=== PATIENT | female | born 1995 | race Caucasian/White ===

== ENCOUNTER 2017-07-22 12:48 | Emergency (ER) | payer OTHER, SELFPAY ==
[2017-07-22 12:49] VITALS: BP 142/84; PULSE 122; RESP 16; TEMP 37.1; O2SAT 99; BMI 25.5
--- NOTE | 2017-07-22 13:17 | ED.VISSUMM ---
- ER Visit Summary Date of Service: 07/22/17 Chief Complaint: Rash History of Present Illness: The patient is a [address] Tovar. He reports that 2 days ago she began with a rash on her right forearm. States initially it looked like a mosquito bite. However, she reports that today the area is more swollen and painful. She reports she has pain 6 out of 10 with touching it and 3 out of 10 at rest. She is not taking anything for pain. Physical Examination: Vitals: Stable. Afebrile. General: Well-nourished and well-developed. Head: Normocephalic atraumatic. Neck: Supple, no lymphadenopathy. No JVD. Nontender. Cardiovascular: Regular rate and rhythm. No murmurs. Respiratory: No respiratory distress. Clear to auscultation bilaterally. Abdominal: Soft, nontender, nondistended, normal bowel sounds. No guarding, rebound, or peritoneal signs. Back: Nontender. Extremities: Nontender, no edema. Skin: On the medial/posterior surface of her right mid forearm there is an approximately 7 cm raised erythematous lesion. There is an approximately 3 mm central macular lesion within this. There is no induration or fluctuance. Neurologic: Alert and oriented ?3. Cranial nerves II through XII are intact. Normal strength and sensation. Psych: Normal affect. Emergency Department Course and Treatment: Had a prolonged discussion with patient that this looks like a localized allergic reaction. However, I cannot rule out cellulitis. She was treated with Benadryl and clindamycin. Instructed her that if the erythema improved greatly with within a few hours that is from the Benadryl and this is allergic in etiology. Treatment Plan: Patient will be discharged with Zyrtec and clindamycin. Instructed to follow-up with her primary care physician in 2 days for a wound check. Return to the emergency department for any worsening symptoms. Disposition: To home in improved and stable condition. Impression: 1. Localized allergic reaction left forearm. This note was generated with [employer] dictation software. It may contain incorrect words, spelling, and punctuation that were not noted in review of the chart prior to signing ED Disposition - Plan for ED Patient: Disposition: Home or Assisted Living Chief Complaint: Cellulitis Instructions: ED Bite Sting Insect Local Allergic React Prescriptions: Ondansetron [Zofran Odt] 4 mg PO Q8H PRN PRN #10 tablet PRN Reason: Nausea Cetirizine HCl [Zyrtec] 10 mg PO DAILY #14 tablet Clindamycin [Cleocin] 150 mg PO TID #21 capsule Mupirocin Calcium [Bactroban] 30 gm TP 4X/DAY #1 tube Referrals: Godwin Hensley [Primary Care Provider] - 2 Days for wound check
[2017-07-22] MEDS: DiphenhydrAMINE 25 MG Capsule 50 MG PO (13:43)
[2017-07-22] MEDS: Ondansetron ODT 4 MG Tablet PO (13:43)
[2017-07-22] MEDS: Clindamycin HCl 150 MG Capsule PO (13:43)
[2017-07-22 13:46] VITALS: BP 129/89; PULSE 100; RESP 14; O2SAT 98
== END 2017-07-22 13:47 | disposition home or self-care (01) ==
LOC: ED 13:24
PROVIDERS: Emergency Provider Emergency Medicine; Family Provider Family Medicine; PCP Family Medicine
DX: T78.40XA Allergy, unspecified, initial encounter (principal); Z72.0 Tobacco use; X58.XXXA Exposure to other specified factors, initial encounter
CPT/HCPCS: 99284

== ENCOUNTER 2021-12-29 17:12 | Inpatient (IN) | payer MEDICAID, OTHER, SELFPAY ==
[2021-12-29] VITALS (12 sets, daily range): BP systolic 106–139; BP diastolic 45–74; PULSE 116–132; RESP 16–26; TEMP 36.8–39.4; O2SAT 96–100; BMI 35.2; BMI 35.7
--- NOTE | 2021-12-29 17:50 | EKG12_ITS ---
Test Reason : GENERAL ILLNESS Blood Pressure : / mmHG Vent. Rate : 118 BPM Atrial Rate : 118 BPM P-R Int : 134 ms QRS Dur : 106 ms QT Int : 324 ms P-R-T Axes : 039 080 038 degrees QTc Int : 454 ms Sinus tachycardia Otherwise normal ECG Confirmed by ROSA DISLA, MANISHA ([id number]), brands editor MARY TYLER ([id number]) on 01/04/2022 9:32:08 A M Referred By: Confirmed By:MARK LEE MD
--- NOTE | 2021-12-29 17:53 | EDS_ITS ---
HPI History of Present Illness Chief Complaint: General Illness Detail of Chief Complaint: Fever. Informant: patient and family Onset/Context/Timing Onset: Days Context: Gradual Onset Timing: Continuous Current Severity: Moderate Maximum Severity: Moderate Narrative Narrative: 26-year-old female history of IV drug abuse. Had been sober and just recently relapsed. Several days ago injected methamphetamine into her left lower leg and behind her knee. The last several days has been feeling well today developed a fever. She is also on her menstrual cycle. Went to [facility] in hospital she did not tell them the whole truth and willingly admits that to me they worked her up for possible pelvic infection discharged home. She presents here now with a fever and not feeling well. Denies any abdominal pain. No recent hospitalization. Prior similar symptoms: No Recent Illness/Hospitalization: No PFSH PFS Medical History Methamphetamine abuse Home Medications NK 12/29/21 [History Last Taken Unknown] Allergy/AdvReac Type Severity Reaction Status Date / Time No Known Allergies Allergy Verified 12/29/21 17:16 Social History Smoking Status: Current every day smoker tobacco type: e-cigarettes ROS ROS ED ROS Narrative Fever and chills. Review of Systems ROS Unobtainable: Denies due to encephalopathy Constitutional Constitutional ED: Reports chills and fever(s) Eyes Eyes: Denies blurry vision ENT ENT ED: Denies ear pain Cardiovascular Cardiovascular: Denies chest pain Respiratory/Chest Respiratory/Chest: Denies cough or dyspnea Gastrointestinal Gastrointestinal: Denies abdominal pain Genitourinary Genitourinary ED: Denies dysuria or hematuria Musculoskeletal Musculoskeletal: Denies arthralgias Integumentary Denies abscess or Abrasions Neurologic Neurologic: Denies headache(s) Psychiatric Psychiatric: Denies anxiety Endocrine Endocrinology: Denies cold intolerance Hematologic/Lymphatic Hematologic/Lymphatic: Reports none Allergic/Immunologic Allergic/Immunologic ED: Denies mouth swelling or tongue swelling EXAM Physical Exam Narrative Exam Narrative: 30-year-old female vital signs she is tachycardic at 132 with a temperature 100.1. Blood pressure 106/59. She looks like she does not feel well. Possibly septic. Pulse ox under percent on room air no signs hypoxia H EENT exam unremarkable. Neck nontender no lymphadenopathy. Lungs clear to auscultation. Heart tachycardic rate about 130 no murmur. Abdomen soft nontender normal bowel sounds no peritoneal signs. Moving all 4 extremities. Extremities she has track chan on her left lower extremity posteriorly and has an area of cellulitis in the proximal medial left calf. It is approximately 5 inches in length and 4 to 6 inches in width. No lymphangitic streaking. No inguinal lymp hadenopathy. Neurologically she is awake and alert. Answering questions and following commands. Const Vital Signs: 12/29/21 17:14 12/29/21 17:37 12/29/21 17:44 Temperature 100.1 F H 100.1 F H Temperature Source Oral Oral Pulse Rate 132 H 123 H Respiratory Rate 18 20 H Respiratory Effort Normal Non-Labored Respiratory Pattern Normal Blood Pressure 106/59 L 122/69 H Blood Pressure Mean 74 86 Pulse Ox 100 100 Oxygen Delivery Method Room Air Room Air 12/29/21 17:52 12/29/21 18:26 12/29/21 19:12 Temperature 102.2 F H 99.1 F Temperature Source Oral Temporal Pulse Rate 120 H 116 H Respiratory Rate 16 16 Respiratory Effort Respiratory Pattern Blood Pressure 122/69 H 139/74 H Blood Pressure Mean 86 95 Pulse Ox 98 100 100 Oxygen Delivery Method Room Air Room Air Room Air 12/29/21 19:14 Temperature 99.1 F Temperature Source Temporal Pulse Rate 116 H Respiratory Rate 16 Respiratory Effort Respiratory Pattern Blood Pressure 139/74 H Blood Pressure Mean 95 Pulse Ox 100 Oxygen Delivery Method Room Air Positive well nourished, well developed and obese; Negative for cachectic, contractures or unkempt General Appearance ED: well developed; Negative for unkempt, cachectic, contractures, cyanotic, diaphoretic, NAD or pallor Nutritional Appearance: obese; Negative for cachectic HEENT Reports moist mucous membranes Negative for trauma or tenderness Eyes PERRL and EOMs intact bilaterally General Eye ED: Negative for pale conjunctiva or scleral icterus Neck no lymphadenopathy, supple and no JVD General: Negative for tenderness Lymph Lymphatic: Negative for other Chest Wall inspection of chest normal and palpation of chest normal Chest: Negative for other Resp normal respiratory effort and clear to auscultation bilaterally Effort and Inspection: Negative for retractions Auscultation: Negative for rales, rhonchi, wheezes or diminished lung sounds Cardio regular rhythm, S1 normal heart sound, S2 normal heart sound and no murmurs; Negative for regular rate Rate: tachycardic Rhythm: Negative for abnormal rhythm GI normal to inspection, nondistended, normoactive bowel sounds, non-tender, non- distended and no masses Inspection: Negative for abdominal distention Auscultation: normoactive bowel sounds Palpation: soft; Negative for tender, guarding, splenomegaly, mass or rebound tenderness present Back/Spine no CVA tenderness General Back: Negative for CVA tenderness Cervical Spine: Negative for cervical spine tenderness Thoracic Spine / Upper Back: Negative for thoracic spinal tenderness or paraspinal muscle tenderness Lumbar Spine / Lower Back: Negative for lumbar spinal tenderness Extremity normal to inspection Extremity Narrative: Except left lower leg track chan. Left proximal medial calf she has cellulitis that is warm to touch and tender. No lymphangitic streaking or inguinal lymphadenopathy. General Extremety ED: Yes edema and tenderness General Extremity: edema Neuro oriented x3, CN's II-XII intact bilaterally and no sensory deficits noted Sensorium / Orientation: alert; Negative for orientation impaired, lethargic or stuporous Motor Exam: strength 5/5 throughout Psych mental status grossly normal Appearance: Negative for unkempt Attitude: No agitated Mood & Affect: Negative for depressed, anxious or tearful Skin No no rashes or lesions noted and no wounds General Skin Exam: Negative for jaundice or pallor Rashes: rashes noted MDM MDM MDM Narrative Medical decision making narrative: 26-year-old with history of IV drug abuse. Several day history of not feeling well appears to have a left lower extremity cellulitis from where she shoots up. Placed through a septic work-up. Liter normal saline. Tylenol. Started on IV Zosyn and vancomycin. Repeat exam at 7:30 PM patient is improving. She has been given a liter of IV fluids. Tylenol and to IV antibiotics. Clinically she looks a little improved. Blood pressure 139/74. Heart rate 116. Temperature 99.1. I went over all test results with the patient and her . Hospitalist is down evaluating her for admission. On repeat exam she does have a cellulitis on her right jiang also. Lab Data Attestation: I reviewed the patient's lab results. Lab results narrative: CBC shows elevated white count 18. H&H 10.8 and 34. Platelets 199. PT, INR PTT unremarkable. Electrolytes show sodium 133 gap of a normal BUN of 10 creatinine of 1. Glucose 139. Liver enzymes unremarkable. Lactic acid 1.6. UA negative except for red cells and she is on her period. Labs: Laboratory Results - last 24 hr 12/29/21 12/29/21 12/29/21 17:45 17:45 17:45 WBC 18.0 H RBC 4.31 Hgb 10.8 L Hct 34.0 L MCV 78.9 L MCH 25.1 L MCHC 31.8 L RDW Std Deviation 40.7 RDW Coeff of Mikki 14.0 Plt Count 199 MPV 11.1 Immature Gran % (Auto) 0.700 Neut % (Auto) 91.3 H Lymph % (Auto) 4.2 L [place] % (Auto) 3.6 Eos % (Auto) 0.0 Baso % (Auto) 0.2 Absolute Neuts (auto) 16.5 H Absolute Lymphs (auto) 0.75 L Nucleated RBC % 0 PT 14.4 INR 1.2 APTT 34.4 Sodium 133 L Potassium 3.4 L Chloride 100 Carbon Dioxide 25.0 Anion Gap 8 BUN 10 Creatinine 1.01 Estim Creat Clear Calc 82.80 Est GFR (MDRD) Af Amer 86 Est GFR (MDRD) Non-Af 71 BUN/Creatinine Ratio 9.9 L Glucose 139 H Lactic Acid Calcium 8.1 L Total Bilirubin 0.50 AST 14 L ALT 23 Alkaline Phosphatase 46 Total Protein 7.0 Albumin 3.1 L Globulin 3.9 Albumin/Globulin Ratio 0.8 L Urine Color Urine Clarity Urine pH Ur Specific [place] Urine Protein Urine Glucose (UA) Urine Ketones Urine Occult Blood Urine Nitrite Urine Bilirubin Urine Urobilinogen Ur Leukocyte Esterase Urine RBC Urine WBC Ur Squamous Epith Cells Urine Bacteria Urine Mucus 12/29/21 12/29/21 17:45 18:07 WBC RBC Hgb Hct MCV MCH MCHC RDW Std Deviation RDW Coeff of Mikki Plt Count MPV Immature Gran % (Auto) Neut % (Auto) Lymph % (Auto) [place] % (Auto) Eos % (Auto) Baso % (Auto) Absolute Neuts (auto) Absolute Lymphs (auto) Nucleated RBC % PT INR APTT Sodium Potassium Chloride Carbon Dioxide Anion Gap BUN Creatinine Estim Creat Clear Calc Est GFR (MDRD) Af Amer Est GFR (MDRD) Non-Af BUN/Creatinine Ratio Glucose Lactic Acid 1.6 Calcium Total Bilirubin AST ALT Alkaline Phosphatase Total Protein Albumin Globulin Albumin/Globulin Ratio Urine Color Yellow Urine Clarity Clear Urine pH 7.0 Ur Specific [place] 1.010 Urine Protein Negative Urine Glucose (UA) Normal Urine Ketones Negative Urine Occult Blood 250 H Urine Nitrite Negative Urine Bilirubin Negative Urine Urobilinogen Normal Ur Leukocyte Esterase Negative Urine RBC 10-25 SEEN Urine WBC 0 SEEN Ur Squamous Epith Cells 0 SEEN Urine Bacteria RARE Urine Mucus 0 SEEN Radiography Chest X-Ray - ED: 1 View, Read by ED Physician, Read by Radiologist, Heart, Lungs, Mediastinum, Bony Structures and No Acute Disease Diagnostic Testing: Clinical Impression(s) from Imaging Studies Chest X-Ray 12/29/21 18:28 IMPRESSION: 1. No evidence of acute cardiopulmonary process Electronically Signed: Tony Peck MD at 19:14 EST , Chest x-ray, portable, single view shows no acute abnormality. Normal cardiac silhouette. No infiltrates. Interpreted both by myself and radiologist. Rhythm Strip Rhythm Strip: Sinus Tach Rate: 118 Ectopy: None EKG Initial EKG: Attestation: I personally reviewed and interpreted this EKG as follows: Interpretation: No Acute Injury Pattern and Sinus Tachycardia Comments: Sinus tach cardia rate of 118 no acute signs of IL, ischemia or dysrhythmia. Discharge Plan Triage Chief Complaint: General Illness Other Complaint: Abscess ED Provider: Fercho Valdivia Dx/Rx/DC Orders Clinical Impression: Fever, Leukocytosis, Cellulitis, SIRS (systemic inflammatory response syndrome), History of intravenous drug abuse Prescriptions: No Action NK Primary Care Provider: Kesha Duncan NP Referrals: Godwin Hensley MD [Non-Staff] - Disposition Disposition: Acute Care [facility]
[2021-12-29] MEDS: 0.9% Normal Saline 1,000 ML 999 ML IV ×2 (17:56→22:00)
[2021-12-29 18:01] LABS: Absolute Lymphocyte Count 0.75 X10^3/uL (0.83-4.51); Absolute Neutrophil Count 16.5 X10^3/uL (2.0-7.7); Basophil# 0.04 X10^3/uL; Basophil% 0.2 % (0-1); Hemoglobin 10.8 g/dL (12.0-15.0); Lymphocyte # 0.75 X10^3/ul (0.83-4.51); Lymphocyte % 4.2 % (19-41); Mean Corp Hgb Conc 31.8 g/dL (32-36); Mean Corpuscular Hgb 25.1 pg (27.0-32.0); Mean Corpuscular Volume 78.9 fL (81-99); Mean Platelet Vol. 11.1 fl (6.2-12.0); Monocyte# 0.64 X10^3/uL; Monocyte% 3.6 % (0-10); NRBC Flagged by Analyzer 0 % (0-5); Neutrophil # 16.47 X10^3/uL (2.7-7.7); Neutrophil % 91.3 % (47-70); Platelet Count 199 K/mm3 (150-450); RBC Distribution Width SD 40.7 fl (35.1-43.9); Red Blood Count 4.31 M/mm3 (4.2-5.4)
--- NOTE | 2021-12-29 18:02 | NURSING ---
NO OLD EKGS
[2021-12-29] MEDS: Acetaminophen 500 MG Tablet 1000 MG PO (18:20)
[2021-12-29 18:21] LABS: ALB/GLOB Ratio 0.8 RATIO (0.9-2.4); AST(SGOT) 14 U/L (15-37); Alanine Aminotransfer ALT/SGPT 23 U/L (13-56); Albumin, Serum 3.1 g/dL (3.2-5.0); Alkaline Phosphatase 46 U/L (45-117); Anion Gap 8 (5-15); BUN 10 mg/dL (7-18); BUN/Creat Ratio 9.9 RATIO (10-20); Calcium,Total 8.1 mg/dL (8.5-10.1); Chloride 100 mmol/L (98-107); Creatinine, Serum 1.01 mg/dL (0.55-1.02); EST Glomerular Filtration Rate 71 mL/min (>60); Est Glom Filt Rate - Afr Amer 86 mL/min (>60); Globulin 3.9 g/dL (2.2-4.2); Glucose 139 mg/dL (74-106); International Normalized Ratio 1.2; Partial Thromboplast Time 34.4 Seconds (24.1-36.2); Potassium 3.4 mmol/L (3.5-5.1); Prothrombin Time (Protime)PT. 14.4 SECONDS (11.7-14.9); Sodium Level 133 mmol/L (136-145)
[2021-12-29 18:24] LABS: Lactic Acid 1.6 mmol/L (0.4-1.9)
--- NOTE | 2021-12-29 18:28 | RAD_ITS ---
INDICATION: fever EXAMINATION/TECHNIQUE: X-RAY - XR Chest 1 View COMPARISON: No previous relevant examinations available for comparison.. FINDINGS: LIFE-SUPPORT AND LINES: 1. None HEART AND VESSELS: The cardiac silhouette, pulmonary vasculature have normal appearance. No evidence of congestive failure. LUNGS AND PLEURAL SPACES: Lungs are clear. No focal infiltrate, consolidation or effusions. No evidence of pneumothorax. No pulmonary mass is noted. MEDIASTINUM AND HILAR REGIONS: No masses adenopathy noted. No areas of calcification. Visualized upper airway is normal in position. BONY ELEMENTS: No acute bony changes noted. RAD/Chest 1 View (Portable) IMPRESSION: 1. No evidence of acute cardiopulmonary process Electronically Signed: Tony Peck MD at 19:14 EST ,
[2021-12-29 18:30] LABS: Mucous, Urine 0 SEEN /hpf (<or=2+); Squamous Epithelial Cells - UA 0 SEEN /hpf (5-10); White Blood Cells 0 SEEN /hpf (0-5)
[2021-12-29 18:36] LABS: Color, Urine Yellow (Yellow); Glucose, Dipstick Normal (Normal); Ketone-Dipstick Negative (Negative); Leukocyte Esterase-Dipstick Negative /ul (Negative); Nitrite-Dipstick Negative (Negative); Occult Blood-Urine 250 /ul (Negative); Protein-Dipstick Negative (Negative); Urine Bilirubin Dipstick Negative (Negative); Urine Clarity Clear (Clear); Urine Urobilinogen Normal (Normal)
[2021-12-29 18:41] LABS: Red Blood Cells-Urine 10-25 SEEN /hpf (0-5)
[2021-12-29 18:42] LABS: Bacteria RARE /hpf (None Seen)
--- NOTE | 2021-12-29 19:13 | HP.PCM.HOS_ITS ---
HPI - General General Date of Admission: 12/29/21 Date of Service: 12/29/21 Chief Complaint: Fever, BL LE cellulitis, possible LLE abscess. HPI Narrative The patient is a 26 y/o F w/ PMHx: Anxiety and Depression, Chronic anemia, Obesity, Tobacco use, Polysubstance abuse w/ recent replace with IVDA w/ injection of the left lower leg behind her knee several days prior with over the last several days progressive fatigue, malaise and now onset of fever as well as left lower extremity redness, edema and pain prompting eventual ED evaluation. She does report that she had been at [facility] however she was not truthful about her drug usage or recent injection and was worked up at that time for possible pelvic infection and discharged home. She currently rates the pain as dull aching throbbing, worse with palpation, 3-4 of 10 in severity. Initially she presented because of the left lower extremity findings however upo n ED evaluation she did have onset on day of presentation of right anterior jiang erythema as well. She denies any recent specific drainage from the left calf wound. Her significant who is present is not a substance user and is supportive about her obtaining a clean status. Work-up in the ED included T102.2, heart rate 120, BP 122/69, respiratory rate 16, 100% on room air, blood culture x2 pending per ED, urine culture pending per ED, CBC with WC 18, hemoglobin 10.8, MCV 78.9, platelet 199 with left shift and lymphopenia, unremarkable coags, CMP with sodium 133, potassium 3.4, glucose 139, lactic acid 1.6 otherwise hepatic profile not marked appearing, urinalysis with no obvious evidence of UTI, chest x-ray with no acute cardiopulmonary findings. In the ED patient ministered vancomycin, Zosyn, Tylenol and normal saline 1 L bolus. PFSH Medical History Anemia Anxiety and depression IVDA (intravenous drug abuse) complicating Methamphetamine abuse Obesity Tobacco use Home Medications NK 12/29/21 [History Last Taken Unknown] Allergy/AdvReac Type Severity Reaction Status Date / Time No Known Allergies Allergy Verified 12/29/21 17:16 Family History (Updated 12/30/21 @ 01:[address] Alva Guo MD) Mother Cancer Alcohol abuse Father Alcohol abuse Surgical History (Updated 12/30/21 @ 01:[address] Alva Guo MD) H/O arthroscopic knee surgery Social History (Updated 12/30/21 @ 01:[address] Alva Guo MD) household members: significant other Smoking Status: Current every day smoker tobacco type: cigarettes and e- cigarettes how long ago did patient quit smoking: Quit cig tob x 2 yrs (1.5 ppd since teen)->jewel pot daily. alcohol intake: current alcohol intake frequency: holidays/special occasions only substance use type: amphetamines and IV drugs ROS ROS Narrative Admission Review of Systems: CONSTITUTIONAL: No weight loss, fever, chills, + weakness or fatigue. HEENT: Eyes: No visual loss, blurred vision, double vision or yellow sclerae. Ears, Nose, Throat: No hearing loss, sneezing, congestion, runny nose or sore throat. SKIN: + Lower extremity redness, pain. CARDIOVASCULAR: No chest pain, chest pressure or chest discomfort, palpitations, edema, orthopnea, syncopal events. RESPIRATORY: No shortness of breath, cough or sputum, wheezing, hemoptysis. GASTROINTESTINAL: No anorexia, nausea, vomiting or diarrhea, abdominal pain, melena, BRBPR. GENITOURINARY: No dysuria, frequency, urgency or retention. NEUROLOGICAL: No headache, dizziness, syncope, paralysis, ataxia, numbness or tingling in the extremities, focal weakness, change in bowel or bladder control, seizure. MUSCULOSKELETAL: + muscle, back pain, joint pain or stiffness. HEMATOLOGIC: + anemia, bleeding or bruising. LYMPHATICS: No enlarged nodes. No history of splenectomy. PSYCHIATRIC: + history of depression or anxiety. ENDOCRINOLOGIC: No reports of sweating, cold or heat intolerance. No polyuria or polydipsia. ALLERGIES: No history of asthma, hives, eczema or rhinitis. Vital Signs Vital Signs Vital Signs: 12/29/21 17:14 12/29/21 17:37 12/29/21 17:44 Temperature 100.1 F H 100.1 F H Temperature Source Oral Oral Pulse Rate 132 H 123 H Respiratory Rate 18 20 H Respiratory Effort Normal Non-Labored Respiratory Pattern Normal Blood Pressure 106/59 L 122/69 H Blood Pressure Mean 74 86 Pulse Ox 100 100 Oxygen Delivery Method Room Air Room Air 12/29/21 17:52 12/29/21 18:26 Temperature 102.2 F H Temperature Source Oral Pulse Rate 120 H Respiratory Rate 16 Respiratory Effort Respiratory Pattern Blood Pressure 122/69 H Blood Pressure Mean 86 Pulse Ox 98 100 Oxygen Delivery Method Room Air Room Air Weight Weight: 225 lb Body Mass Index (BMI) 35.2 Physical Exam Narrative Physical Examination: General: Awake, alert, oriented x 3 and cooperative, seated upright in the ED bed, fatigued, uncomfortable appearing. Skin: Normal color, normal turgor, no icterus, no cyanosis except for notable anterior jiang erythema with increased warmth, tender to palpation with no obvious abscess with just medial to this on the mid jiang healing wounds with no apparent drainage and no significant induration or evidence of any abscess, left lower extremity with posterior medial calf with a region of erythema as well as an area of induration with no specific drainage from a wound at that location as well, tender to palpation as well as significant facial and extremity exco riations/picked regions/acne scarring. HEENT: AT/NC, EOMI, PERRLA, dry MM, no carotid bruits or JVD noted. Lungs: Mildly diminished, greater bases, appropriate effort, no rales, ronchi or wheezing. Heart: Tachycardic with regular rhythm; no gallop, rub audible. Abdomen: Soft, obese, NTTP, ND, distant normal BS, no HSM. Extremities: No cyanosis, no clubbing, see skin. Neurological: Patient awake, alert, oriented as noted, cognitive function intact; pupils equally reactive to light and accommodation, cranial nerves II- XII grossly normal, moving all 4 extremities however limited given pain elici heber, no focal deficits, strength mildly to moderately globally decreased secondary to acute complaints. Psychiatric: Affect appears uncomfortable, fatigued, tearful about her relapse, history of anxiety and depression. Results Lab / Micro Data Result Diagrams: 12/29/21 17:45 12/29/21 17:45 Labs: Laboratory Results - last 24 hr 12/29/21 17:45: WBC 18.0 H, RBC 4.31, Hgb 10.8 L, Hct 34.0 L, MCV 78.9 L, MCH 25.1 L, MCHC 31.8 L, RDW Std Deviation 40.7, RDW Coeff of Mikki 14.0, Plt Count 199, MPV 11.1, Immature Gran % (Auto) 0.700, Neut % (Auto) 91.3 H, Lymph % (Auto) 4.2 L, [place] % (Auto) 3.6, Eos % (Auto) 0.0, Baso % (Auto) 0.2, Absolute Neuts (auto) 16.5 H, Absolute Lymphs (auto) 0.75 L, Nucleated RBC % 0 12/29/21 17:45: PT 14.4, INR 1.2, APTT 34.4 12/29/21 17:45: Sodium 133 L, Potassium 3.4 L, Chloride 100, Carbon Dioxide 25.0, Anion Gap 8, BUN 10, Creatinine 1.01, Estim Creat Clear Calc 82.80, Est GFR (MDRD) Af Amer 86, Est GFR (MDRD) Non-Af 71, BUN/Creatinine Ratio 9.9 L, Glucose 139 H, Calcium 8.1 L, Total Bilirubin 0.50, AST 14 L, ALT 23, Alkaline Phosphatase 46, Total Protein 7.0, Albumin 3.1 L, Globulin 3.9, Albumin/Globulin Ratio 0.8 L 12/29/21 17:45: Lactic Acid 1.6 12/29/21 18:07: Urine Color Yellow, Urine Clarity Clear, Urine pH 7.0, Ur Specific [place] 1.010, Urine Protein Negative, Urine Glucose (UA) Normal, Urine Ketones Negative, Urine Occult Blood 250 H, Urine Nitrite Negative, Urine Bilirubin Negative, Urine Urobilinogen Normal, Ur Leukocyte Esterase Negative, Urine RBC 10-25 SEEN, Urine WBC 0 SEEN, Ur Squamous Epith Cells 0 SEEN, Urine Bacteria RARE, Urine Mucus 0 SEEN Assessment & Plan Assessment/Plan (1) Cellulitis: PLAN: Plan The patient is a 26 y/o F w/ PMHx: Anxiety and Depression, Chronic anemia, Obesity, Tobacco use, Polysubstance abuse w/ recent replace with IVDA w/ injection of the left lower leg behind her knee several days prior with over the last several days progressive fatigue, malaise and now onset of fever as well as left lower extremity redness, edema and pain prompting eventual ED evaluation. #1. LLE Posteriomedial Calf Cellulitis, Possible abscess, R anterior jiang cellulitis, secondary to recent IVDA injection: Will admit to MS telemetry, maintain on IV vanc and zosyn, currently no obvious abscess but given indurated region will obtain imaging to be cautious, if any onset drainage will obtain Wound Cx, Wound MRSA PCR, if any noted abscess on imaging would involve Plastic surgery, will plan repeat CBC in AM, continue affected extremity elevation above heart when seated and in bed, monitor erythema outline with VS checks, ESR/CRP pending. #2. Hyponatremia, mild: Sodium upon presentation 133, suspect mild hypovolemic component, continue aggressive hydration, repeat CMP in AM. #3. Hypokalemia: Admission K+ 3.4, magnesium level requested, supplementation given, repeat level in AM. #4. Hyperglycemia, mild: Admission glucose 139, will obtain HgBA1c to be cautious. #5. Polysubstance Abuse, IVDA: Given history will consult case management for substance abuse for assistance and will request HIV as well as hepatitis panel. Urine drug screen also requested. Patient currently not candidate for hep C treatment currently as needs to be clean, sober x 6 months, documented attendanc e NA or AA meetings, counseling and ongoing negative drug screens. Case management consulted for substance abuse assistance. #6. Tobacco Abuse: Encouraged cessation, inpatient consultation per RT, NR if desired. #7. Microcytic anemia, unclear if new onset: Admission hemoglobin 10.8, MCV 78.9, will obtain iron panel, ferritin to be cautious given poor follow-up concerns #8. Tobacco Abuse: Encouraged cessation, inpatient consultation per RT, NR if desired. #9. Obesity: Weight loss and lifestyle changes encouraged. #10. Anxiety and depression: Patient is not on regimen, notes during prior treatment for substance abuse she had been started on medications but at discharge had difficulty with insurance and unfortunately has not been on this regimen since. Patient would benefit from counseling and resumption of medications, awaiting case management involvement. #11. DVT prophylaxis: SCDs, hold chemoprophylaxis for possible OR needs Charges/Coding Visit Charges Inpatient E&M: 81604 Init Hosp L3
[2021-12-29 20:02] LABS: Magnesium 1.3 mg/dL (1.6-2.6)
[2021-12-29 20:23] LABS: Erythrocyte Sedimentation Rate 33 mm/hr (0-30)
[2021-12-29 21:03] LABS: HIV - WCH Non-Reactive (Nonreactive)
--- NOTE | 2021-12-29 21:11 | CT_ITS ---
HISTORY: Left possible posteromedial calf region abscess Date: 12/29/2021 10:46 PM Technique: CT examination obtained with standard protocol including axial imaging with multiplanar reconstructions. No contrast administered. Location: LEFT calf Contrast: No contrast administered Radiation Dose (provided by facility) CTDIvol (15.35 ) mGy, DLP ( 722.19) mGy-cm Comparison: No previous for comparison FINDINGS: BONY ELEMENTS: 1. Normal alignment bony elements without evidence of fracture malalignment. No destructive bony process noted. JOINT SPACES: 1. Normal appearance of alignment of bony elements and joint spaces. No joint effusion DEEP MUSCULAR COMPARTMENTS: 1. Deep muscular compartments are well-maintained. 2. No abnormal fluid collections noted in the deep muscular fascial compartments of the distal thigh, knee, or proximal calf. NEURAL VASCULAR COMPARTMENTS: 1. Normal appearance of the neural vascular compartments SUBCUTANEOUS SOFT TISSUES. 1. Scattered areas of soft tissue stranding the subcutaneous soft tissues including the infrapatellar region, minimal soft tissue stranding noted posteriorly at the level of the gastrocnemius. No organized fluid collection or abscess noted. CT/Extremity Lower without Contra IMPRESSION: 1. Normal appearance of bony elements and joint spaces. 2. Subtle soft tissue stranding in the infrapatellar soft tissues anteriorly, and posteriorly along the posterior contour of the gastrocnemius. Findings consistent with mild cellulitis, no evidence however of organized fluid collection or abscess. 3. No deep muscular fascial fluid collections or abscess noted. Electronically Signed: Tony Peck MD at 2:01 EST ,
--- NOTE | 2021-12-29 21:27 | PCM.HOSP.N ---
Hospitalist Note Patient with onset facial swelling, tingling sensation of her tongue. Received zosyn prior and now currently has vanc hanging with onset of reaction. ED denied any onset while in the ED. Will stop vanc given reaction now while this has started, add famotidine, steroids and also benadryl with d/c once improving. Will need to monitor as certainly could have been from zosyn also but will continue this in the interim and watch for any further reaction.
[2021-12-29 21:40] LABS: Amphetamine Urine VISTA POSITIVE (<1000 ng/mL); Barbiturate Urine VISTA NEGATIVE (< 200 ng/mL); Benzodiazepine Urine VISTA NEGATIVE (< 200 ng/mL); Cocaine Urine VISTA NEGATIVE (< 300 ng/mL); Ecstacy Urine VISTA POSITIVE (< 500 ng/mL); Methadone Urine VISTA NEGATIVE (< 300 ng/mL); PCP Urine VISTA NEGATIVE (< 25 ng/mL); THC Urine VISTA NEGATIVE (< 50 ng/mL); Vista UDS pH Range 6
[2021-12-29 21:58] LABS: M R Staph aureus DNA By PCR Negative (Negative); Probe Check PASS; Specimen Processing Control PASS; Staph aureus DNA By PCR POSITIVE (Negative)
[2021-12-29] MEDS: 0.9% Normal Saline 1,000 ML 150 ML IV (22:01)
[2021-12-29] MEDS: Famotidine 200 MG/20 ML MDV 20 MG in 0.9% Normal Saline (Pres. free 8 ML 300 MG IV (22:02)
[2021-12-29] MEDS: DiphenhydrAMINE 50 MG/ML Syringe 25 MG IV (22:03)
[2021-12-29] MEDS: Acetaminophen 325 MG Tablet 650 MG PO (22:03)
[2021-12-29] MEDS: Potassium Chloride Oral Tablet 20 MEQ 40 MEQ PO (22:07)
[2021-12-30] VITALS (13 sets, daily range): BP systolic 108–128; BP diastolic 66–72; PULSE 77–121; RESP 16–18; TEMP 36.5–37.2; O2SAT 96–100
[2021-12-30 03:54] LABS: M R Staph aureus DNA By PCR Negative (Negative); Probe Check PASS; Specimen Processing Control PASS
[2021-12-30 04:30] LABS: Absolute Neutrophil Count 15.1 X10^3/uL (2.0-7.7); Basophil# 0.04 X10^3/uL; Basophil% 0.2 % (0-1); Hematocrit 33.6 % (37-47); Hemoglobin 11.1 g/dL (12.0-15.0); Lymphocyte % 4.3 % (19-41); Mean Corpuscular Hgb 26.4 pg (27.0-32.0); Mean Corpuscular Volume 79.8 fL (81-99); Mean Platelet Vol. 11.2 fl (6.2-12.0); Monocyte# 0.29 X10^3/uL; Monocyte% 1.8 % (0-10); NRBC Flagged by Analyzer 0 % (0-5); Neutrophil % 93.1 % (47-70); Platelet Count 206 K/mm3 (150-450); RBC Distribution Width CV 14.6 % (11.6-14.6); RBC Distribution Width SD 42.5 fl (35.1-43.9); Red Blood Count 4.21 M/mm3 (4.2-5.4); White Blood Count 16.2 K/mm3 (4.4-11.0)
[2021-12-30 04:52] LABS: ALB/GLOB Ratio 0.7 RATIO (0.9-2.4); AST(SGOT) 11 U/L (15-37); Alanine Aminotransfer ALT/SGPT 21 U/L (13-56); Albumin, Serum 2.7 g/dL (3.2-5.0); Alkaline Phosphatase 39 U/L (45-117); Anion Gap 4 (5-15); BUN 12 mg/dL (7-18); BUN/Creat Ratio 10.3 RATIO (10-20); Calcium,Total 7.9 mg/dL (8.5-10.1); Chloride 111 mmol/L (98-107); Creatinine, Serum 1.16 mg/dL (0.55-1.02); EST Glomerular Filtration Rate 60 mL/min (>60); Est Glom Filt Rate - Afr Amer 73 mL/min (>60); Globulin 3.7 g/dL (2.2-4.2); Glucose 143 mg/dL (74-106); Magnesium 1.7 mg/dL (1.6-2.6); Potassium 4.3 mmol/L (3.5-5.1); Protein, Total 6.4 g/dL (6.4-8.2); Sodium Level 139 mmol/L (136-145)
[2021-12-30] MEDS: DiphenhydrAMINE 50 MG/ML Syringe 25 MG IV (05:13)
[2021-12-30 06:51] LABS: Ferritin 42 ng/mL (8-252); Iron 10 ug/dL (50-170); Iron Binding Capacity,Total 403 ug/dL (250-450); PERCENT IRON SATURATION 2.5 % (15.0-55.0)
[2021-12-30] MEDS: 0.9% Normal Saline 1,000 ML 150 ML IV ×3 (07:53→22:11)
[2021-12-30 09:28] LABS: Hepatitis B Surface Antibody Non-Reactive; Hepatitis B Surface Antigen Non-Reactive (Nonreactive); Hepatitis C Antibody Non-Reactive (Nonreactive)
[2021-12-30 09:34] LABS: Hemoglobin A1c 5.4 % (3.8-5.6)
[2021-12-30] MEDS: Famotidine 200 MG/20 ML MDV 20 MG in 0.9% Normal Saline (Pres. free 8 ML 300 MG IV (10:29)
--- NOTE | 2021-12-30 10:45 | CASEMGMT ---
RN CM Face to Face with patient for initial transition planning/care coordination assessment. RN CM introduced self and role at [facility]. Patient sitting in chair, alert and oriented, family at bedside. Patient willing to participate in assessment and is able to answer all questions appropriately. Care providers, pharmacy, and demographics verified. Patient wishes to discharge home, denies need for home health at this time. Patient states she has no further needs or concerns at this time. CM to follow for discharge planning needs that may arise. PCP: [place] Specialists: none Preferred Pharmacy: [facility]; [facility] at discharge. Insurance: [facility], [facility] Prescription Benefit: yes Living Will/HPOA: none LNOK: Living Arrangements: Patient lives with in a single story home with no steps to enter. Patient states she is independent at home. Transportation: self, DME/HHC: Patient denies DME in the home. Patient vapes, interested in cessation. Patient interested in counseling resources, SW updated. Disposition Plan: Patient to discharge home with family support and follow-up plans in place. Tonia KAISER, RN, CM
--- NOTE | 2021-12-30 12:33 | CASEMGMT ---
SW received a referral for counseling and substance abuse resources. DANUTA met with patient. Introduced self and role at [facility]. Patient was sitting up in her chair. She said she tried to see a counselor in [facility], but did not connect with the counselor so it did not work out. DANUTA provided patient with resources for [facility], [facility], addiction stages of change, and another list of a compilation of counseling agencies. Patient thanked DANUTA and said she will look over the information. Lily Tafoya LEVER MILLER BRUNO
--- NOTE | 2021-12-30 17:26 | PCM.PN.HOSP ---
Subjective Subjective Follow-up on bilateral leg cellulitis: Patient was seen and examined. She denies any fever or chills. Her cellulitis is much improved. She is not interested around. She wants resources for substance abuse withdrawal. Objective Data Objective Data Vital Signs: Vital Signs Temp Pulse Resp BP Pulse Ox O2 Del Method 98.6 F 95 16 116/70 100 Room Air 12/30/21 13:00 12/30/21 13:00 12/30/21 13:00 12/30/21 13:00 12/30/21 13:00 12/30/21 13:00 Oxygen Delivery Method Room Air Weight: 103.6 kg Body Mass Index (BMI) 35.7 Intake & Output: Intake and Output for Last 24 Hours 12/28/21 12/29/21 12/30/21 23:59 23:59 23:59 Intake Total 1100 / 2650 4368 / 4368 Balance 1100 / 2650 4368 / 4368 Lab / Micro Data Result Diagrams: 12/30/21 04:23 12/30/21 04:23 Labs: Laboratory Results - last 24 hr 12/29/21 17:45: WBC 18.0 H, RBC 4.31, Hgb 10.8 L, Hct 34.0 L, MCV 78.9 L, MCH 25.1 L, MCHC 31.8 L, RDW Std Deviation 40.7, RDW Coeff of Mikki 14.0, Plt Count 199, MPV 11.1, Immature Gran % (Auto) 0.700, Neut % (Auto) 91.3 H, Lymph % (Auto) 4.2 L, [place] % (Auto) 3.6, Eos % (Auto) 0.0, Baso % (Auto) 0.2, Absolute Neuts (auto) 16.5 H, Absolute Lymphs (auto) 0.75 L, Nucleated RBC % 0 12/29/21 17:45: PT 14.4, INR 1.2, APTT 34.4 12/29/21 17:45: Sodium 133 L, Potassium 3.4 L, Chloride 100, Carbon Dioxide 25.0, Anion Gap 8, BUN 10, Creatinine 1.01, Estim Creat Clear Calc 82.80, Est GFR (MDRD) Af Amer 86, Est GFR (MDRD) Non-Af 71, BUN/Creatinine Ratio 9.9 L, Glucose 139 H, Calcium 8.1 L, Total Bilirubin 0.50, AST 14 L, ALT 23, Alkaline Phosphatase 46, Total Protein 7.0, Albumin 3.1 L, Globulin 3.9, Albumin/Globulin Ratio 0.8 L 12/29/21 17:45: Lactic Acid 1.6 12/29/21 17:45: ESR 33 H 12/29/21 17:45: Magnesium 1.3 L, C-React Prot Ext Range 34.90 H 12/29/21 18:04: Urine Opiates Screen NEGATIVE, Urine Methadone Screen NEGATIVE, Ur Barbiturates Screen NEGATIVE, Ur Phencyclidine Scrn NEGATIVE, Ur Amphetamines Screen POSITIVE H, MDMA (Ecstasy) Screen POSITIVE H, U Benzodiazepines Scrn NEGATIVE, Urine Cocaine Screen NEGATIVE, U Cannabinoids Screen NEGATIVE, Ur Drug Screen Comment 12/29/21 18:07: Urine Color Yellow, Urine Clarity Clear, Urine pH 7.0, Ur Specific [place] 1.010, Urine Protein Negative, Urine Glucose (UA) Normal, Urine Ketones Negative, Urine Occult Blood 250 H, Urine Nitrite Negative, Urine Bilirubin Negative, Urine Urobilinogen Normal, Ur Leukocyte Esterase Negative, Urine RBC 10-25 SEEN, Urine WBC 0 SEEN, Ur Squamous Epith Cells 0 SEEN, Urine Bacteria RARE, Urine Mucus 0 SEEN 12/29/21 19:30: HIV 1&2 Antibody Non-Reactive 12/29/21 19:30: Hep Bs Antigen Non-Reactive, Hep Bs Antibody Non-Reactive, Hepatitis C Antibody Non-Reactive 12/29/21 20:30: S.aureus Protein A PCR POSITIVE H, MRSA (PCR) Negative 12/30/21 02:15: MRSA (PCR) Negative 12/30/21 04:23: WBC 16.2 H, RBC 4.21, Hgb 11.1 L, Hct 33.6 L, MCV 79.8 L, MCH 26.4 L, MCHC 33.0, RDW Std Deviation 42.5, RDW Coeff of Mikki 14.6, Plt Count 206, MPV 11.2, Immature Gran % (Auto) 0.600, Neut % (Auto) 93.1 H, Lymph % (Auto) 4.3 L, [place] % (Auto) 1.8, Eos % (Auto) 0.0, Baso % (Auto) 0.2, Absolute Neuts (auto) 15.1 H, Absolute Lymphs (auto) 0.70 L, Nucleated RBC % 0 12/30/21 04:23: Sodium 139, Potassium 4.3, Chloride 111 H, Carbon Dioxide 24.0, Anion Gap 4 L, BUN 12, Creatinine 1.16 H, Estim Creat Clear Calc 72.10, Est GFR (MDRD) Af Amer 73, Est GFR (MDRD) Non-Af 60, BUN/Creatinine Ratio 10.3, Glucose 143 H, Calcium 7.9 L, Magnesium 1.7, Total Bilirubin 0.30, AST 11 L, ALT 21, Alkaline Phosphatase 39 L, Total Protein 6.4, Albumin 2.7 L, Globulin 3.7, Albumin/Globulin Ratio 0.7 L 12/30/21 04:23: Hemoglobin A1c 5.4 12/30/21 04:23: Iron 10 L, TIBC 403, Iron Saturation 2.5 L, Ferritin 42 Micro: Microbiology 12/29/21 18:07 Urine, Clean Catch Urine Culture - Preliminary Culture exhibits no growth. Radiography Diagnostic Testing: Radiology Impression Chest X-Ray 12/29/21 18:28 IMPRESSION: 1. No evidence of acute cardiopulmonary process Electronically Signed: Tony Peck MD at 19:14 EST , Lower Extremity CT 12/29/21 21:11 IMPRESSION: 1. Normal appearance of bony elements and joint spaces. 2. Subtle soft tissue stranding in the infrapatellar soft tissues anteriorly, and posteriorly along the posterior contour of the gastrocnemius. Findings consistent with mild cellulitis, no evidence however of organized fluid collection or abscess. 3. No deep muscular fascial fluid collections or abscess noted. Electronically Signed: Tony Peck MD at 2:01 EST , Rhythm Strip Rhythm Strip: Sinus Tach Rate: 118 Ectopy: None Physical Exam Narrative Physical exam: General: Alert, Oriented x3, Cooperative, obese HEENT: Atraumatic Oral: Moist Mucosa Neck: Supple Lungs: Clear to auscultation Cardiovascular: HS I+II, regular, no murmurs Abdomen: Bowel Sounds Present, Soft, Non Tender Extremities: Bilateral posterior knee and right anterior jiang erythema appears to be much improved Skin: No rashes, No breakdown Neurological: Grossly intact Psych/Mental Status: Appropriate Assessment & Plan Assessment/Plan (1) Cellulitis: PLAN: Plan 1. Acute bilateral lower extremity/posterior knee/calf cellulitis status post recent IV drug injection in the area, improving Admitting CT of the lower extremities shows subtle soft tissue stranding in the infrapatellar soft tissues anterior and posteriorly along the posterior contralateral extremity most. No fluid collection or abscess seen. WBC count is improved to 16.2 from 18.0. Blood cultures are pending Continue IV vancomycin and Zosyn for now 2. Hyponatremia/hypokalemia, resolved 3. Hypomagnesemia, replaced, recheck in a.m. 4. Polysubstance use, HI been negative, hepatitis profile pending 5. Nicotine dependence, on replacement 6. DVT prophylaxis with SCDs Charges/Coding Visit Charges Inpatient E&M: 65092 Subs Hosp L2
[2021-12-31] VITALS (11 sets, daily range): BP systolic 125–142; BP diastolic 70–95; PULSE 89–116; RESP 16–18; TEMP 36.7–36.8; O2SAT 97–100
[2021-12-31 08:13] LABS: Absolute Lymphocyte Count 2.43 X10^3/uL (0.83-4.51); Absolute Neutrophil Count 13.9 X10^3/uL (2.0-7.7); Basophil# 0.03 X10^3/uL; Basophil% 0.2 % (0-1); Eosinophil# 0.02 X10^3/uL; Eosinophils% 0.1 % (0-5); Hematocrit 32.2 % (37-47); Lymphocyte # 2.43 X10^3/ul (0.83-4.51); Lymphocyte % 13.6 % (19-41); Mean Corp Hgb Conc 31.1 g/dL (32-36); Mean Corpuscular Hgb 25.1 pg (27.0-32.0); Mean Corpuscular Volume 80.7 fL (81-99); Mean Platelet Vol. 11.2 fl (6.2-12.0); Monocyte% 7.8 % (0-10); NRBC Flagged by Analyzer 0 % (0-5); Neutrophil # 13.87 X10^3/uL (2.7-7.7); Neutrophil % 77.5 % (47-70); Platelet Count 206 K/mm3 (150-450); RBC Distribution Width CV 15.1 % (11.6-14.6); RBC Distribution Width SD 44.2 fl (35.1-43.9); Red Blood Count 3.99 M/mm3 (4.2-5.4); White Blood Count 17.9 K/mm3 (4.4-11.0)
[2021-12-31 08:38] LABS: ALB/GLOB Ratio 0.7 RATIO (0.9-2.4); AST(SGOT) 18 U/L (15-37); Alanine Aminotransfer ALT/SGPT 20 U/L (13-56); Albumin, Serum 2.5 g/dL (3.2-5.0); Alkaline Phosphatase 35 U/L (45-117); Anion Gap 6 (5-15); BUN 18 mg/dL (7-18); BUN/Creat Ratio 12.2 RATIO (10-20); Calcium,Total 8.3 mg/dL (8.5-10.1); Chloride 114 mmol/L (98-107); Creatinine, Serum 1.48 mg/dL (0.55-1.02); EST Glomerular Filtration Rate 46 mL/min (>60); Est Glom Filt Rate - Afr Amer 55 mL/min (>60); Estimated Creatinine Clearance 56.51 ml/min; Globulin 3.7 g/dL (2.2-4.2); Glucose 140 mg/dL (74-106); Magnesium 2.4 mg/dL (1.6-2.6); Potassium 4.2 mmol/L (3.5-5.1); Protein, Total 6.2 g/dL (6.4-8.2); Sodium Level 143 mmol/L (136-145)
--- NOTE | 2021-12-31 11:21 | PCM.PN.HOSP ---
Subjective Subjective Follow-up on bilateral leg cellulitis: Patient was seen and examined.? She complains of anxiety. She had some kind of red man syndrome with vancomycin. She denies any fever or chills. Redness in the area of cellulitis is back in her legs. Patient is continued on Zosyn. Objective Data Objective Data Vital Signs: Vital Signs Temp Pulse Resp BP Pulse Ox O2 Del Method 98.3 F 104 H 18 137/81 H 100 Room Air 12/31/21 07:45 12/31/21 07:45 12/31/21 07:45 12/31/21 07:45 12/31/21 07:45 12/31/21 07:50 Oxygen Delivery Method Room Air Weight: 103.6 kg Body Mass Index (BMI) 35.7 Intake & Output: Intake and Output for Last 24 Hours 12/29/21 12/30/21 12/31/21 23:59 23:59 23:59 Intake Total 1100 / 2650 5418 / 5418 917.5 / 917.5 Balance 1100 / 2650 5418 / 5418 917.5 / 917.5 Lab / Micro Data Result Diagrams: 12/31/21 08:04 12/31/21 08:04 Labs: Laboratory Results - last 24 hr 12/31/21 08:04: WBC 17.9 H, RBC 3.99 L, Hgb 10.0 L, Hct 32.2 L, MCV 80.7 L, MCH 25.1 L, MCHC 31.1 L D, RDW Std Deviation 44.2 H, RDW Coeff of Mikki 15.1 H, Plt Count 206, MPV 11.2, Immature Gran % (Auto) 0.800, Neut % (Auto) 77.5 H, Lymph % (Auto) 13.6 L, [place] % (Auto) 7.8, Eos % (Auto) 0.1, Baso % (Auto) 0.2, Absolute Neuts (auto) 13.9 H, Absolute Lymphs (auto) 2.43, Nucleated RBC % 0 12/31/21 08:04: Sodium 143, Potassium 4.2, Chloride 114 H, Carbon Dioxide 23.0, Anion Gap 6, BUN 18, Creatinine 1.48 H, Estim Creat Clear Calc 56.51, Est GFR (MDRD) Af Amer 55 L, Est GFR (MDRD) Non-Af 46 L, BUN/Creatinine Ratio 12.2, Glucose 140 H, Calcium 8.3 L, Magnesium 2.4, Total Bilirubin 0.20, AST 18, ALT 20, Alkaline Phosphatase 35 L, Total Protein 6.2 L, Albumin 2.5 L, Globulin 3.7, Albumin/Globulin Ratio 0.7 L Micro: Microbiology 12/29/21 18:07 Urine, Clean Catch Urine Culture - Final Mixed Gram Positive Organisms Rhythm Strip Rhythm Strip: Sinus Tach Rate: 118 Ectopy: None Physical Exam Narrative Physical exam: General: Alert, Oriented x3, Cooperative, obese HEENT: Atraumatic Oral: Moist Mucosa Neck: Supple Lungs: Clear to auscultation Cardiovascular: HS I+II, regular, no murmurs Abdomen: Bowel Sounds Present, Soft, Non Tender Extremities: Bilateral posterior knee and right anterior jiang erythema appears to be much improved Skin: No rashes, No breakdown Neurological: Grossly intact Psych/Mental Status: Appropriate Assessment & Plan Assessment/Plan (1) Cellulitis: PLAN: Plan 1. Acute bilateral lower extremity/posterior knee/calf cellulitis status post recent IV drug injection in the area, slightly worse today Admitting CT of the lower extremities shows subtle soft tissue stranding in the infrapatellar soft tissues anterior and posteriorly along the posterior contralateral extremity most. No fluid collection or abscess seen. WBC count is worsened to 17.9. Blood cultures are pending Continue IV Zosyn for now 2. Hyponatremia/hypokalemia, resolved 3. Hypomagnesemia, replaced, recheck in a.m. 4. Polysubstance use, HIV negative, hepatitis profile is negative 5. Nicotine dependence, on replacement 6. DVT prophylaxis with SCDs Charges/Coding Visit Charges Inpatient E&M: 47761 Subs Hosp L2
[2021-12-31] MEDS: Ondansetron 8 MG Tablet PO (16:49)
[2021-12-31] MEDS: Ibuprofen 600 MG Tablet PO (20:47)
[2021-12-31] MEDS: cloNIDine HCl 0.1 MG Tablet PO (21:04)
[2022-01-01] VITALS (10 sets, daily range): BP systolic 122–140; BP diastolic 67–95; PULSE 78–103; RESP 18–20; TEMP 36.2–37.2; O2SAT 95–100
[2022-01-01] MEDS: 0.9% Saline Lock 10 ML Syringe IV ×3 (06:44→23:36)
--- NOTE | 2022-01-01 11:12 | PN.HOSP_ITS ---
Subjective Subjective Follow-up on bilateral leg cellulitis: Patient was seen and examined.? She has a new area of redness in the right p roximal thigh. Denies any fever or chills. Objective Data Objective Data Vital Signs: Vital Signs Temp Pulse Resp BP Pulse Ox O2 Del Method 98.2 F 98 20 H 122/67 H 96 Room Air 01/01/22 09:00 01/01/22 09:00 01/01/22 09:00 01/01/22 09:00 01/01/22 09:00 01/01/22 09:33 Oxygen Delivery Method Room Air Weight: 103.6 kg Body Mass Index (BMI) 35.7 Intake & Output: Intake and Output for Last 24 Hours 12/30/21 12/31/21 01/01/22 23:59 23:59 23:59 Intake Total 18 / 5418 50 / 50 Balance 5418 / 5418 50 / 50 Lab / Micro Data Result Diagrams: 12/31/21 08:04 12/31/21 08:04 Micro: Microbiology 12/29/21 18:00 Blood Culture (Wb) - Anticubital Left Blood Culture - Preliminary No growth in 48 hours. 12/29/21 17:45 Blood Culture (Wb) - Anticubital Right Blood Culture - Preliminary No growth in 48 hours. 12/29/21 18:07 Urine, Clean Catch Urine Culture - Final Mixed Gram Positive Organisms Rhythm Strip Rhythm Strip: Sinus Tach Rate: 118 Ectopy: None Physical Exam Narrative Physical exam: General: Alert, Oriented x3, Cooperative, obese HEENT: Atraumatic Oral: Moist Mucosa Neck: Supple Lungs: Clear to auscultation Cardiovascular: HS I+II, regular, no murmurs Abdomen: Bowel Sounds Present, Soft, Non Tender Extremities: Bilateral posterior knee and right anterior jiang erythema appears to be much improved Skin: No rashes, No breakdown Neurological: Grossly intact Psych/Mental Status: Appropriate Assessment & Plan Assessment/Plan (1) Cellulitis: PLAN: Plan 1. Acute bilateral lower extremity/posterior knee/calf cellulitis status post recent IV drug injection in the area, slightly worse today Admitting CT of the lower extremities shows subtle soft tissue stranding in the infrapatellar soft tissues anterior and posteriorly along the posterior contralateral extremity most. No fluid collection or abscess seen. Blood cultures are negative Will de-escalate IV Zosyn to IV cefazolin Possible DC tomorrow 2. Hyponatremia/hypokalemia, resolved 3. Hypomagnesemia, resolved 4. Polysubstance use, HIV negative, hepatitis profile is negative 5. Nicotine dependence, on replacement 6. DVT prophylaxis with SCDs Charges/Coding Visit Charges Inpatient E&M: 29966 Subs Hosp L2
[2022-01-01] MEDS: Cefazolin 2 GM in 0.9% Normal Saline 100 ML IV ×3 (12:29→23:36)
[2022-01-02] VITALS (7 sets, daily range): BP systolic 133–136; BP diastolic 78–96; PULSE 71–82; RESP 16–18; TEMP 36.8–37.2; O2SAT 94–98
[2022-01-02 05:54] LABS: Absolute Lymphocyte Count 3.04 X10^3/uL (0.83-4.51); Absolute Neutrophil Count 4.1 X10^3/uL (2.0-7.7); Basophil# 0.04 X10^3/uL; Basophil% 0.5 % (0-1); Eosinophil# 0.16 X10^3/uL; Hemoglobin 8.5 g/dL (12.0-15.0); Lymphocyte # 3.04 X10^3/ul (0.83-4.51); Lymphocyte % 37.7 % (19-41); Mean Corp Hgb Conc 32.7 g/dL (32-36); Mean Corpuscular Hgb 26.2 pg (27.0-32.0); Mean Corpuscular Volume 80.2 fL (81-99); Mean Platelet Vol. 11.2 fl (6.2-12.0); Monocyte# 0.69 X10^3/uL; Monocyte% 8.6 % (0-10); NRBC Flagged by Analyzer 0 % (0-5); Neutrophil # 4.11 X10^3/uL (2.7-7.7); Platelet Count 205 K/mm3 (150-450); RBC Distribution Width CV 15.2 % (11.6-14.6); RBC Distribution Width SD 44.2 fl (35.1-43.9); Red Blood Count 3.24 M/mm3 (4.2-5.4); White Blood Count 8.1 K/mm3 (4.4-11.0)
[2022-01-02] MEDS: Cefazolin 2 GM in 0.9% Normal Saline 100 ML IV ×2 (05:56→11:40)
[2022-01-02 06:24] LABS: ALB/GLOB Ratio 0.6 RATIO (0.9-2.4); AST(SGOT) 16 U/L (15-37); Alanine Aminotransfer ALT/SGPT 18 U/L (13-56); Albumin, Serum 2.4 g/dL (3.2-5.0); Alkaline Phosphatase 41 U/L (45-117); Anion Gap 7 (5-15); BUN 16 mg/dL (7-18); BUN/Creat Ratio 9.2 RATIO (10-20); Calcium,Total 8.2 mg/dL (8.5-10.1); Chloride 108 mmol/L (98-107); Creatinine, Serum 1.73 mg/dL (0.55-1.02); EST Glomerular Filtration Rate 38 mL/min (>60); Est Glom Filt Rate - Afr Amer 46 mL/min (>60); Estimated Creatinine Clearance 48.34 ml/min; Globulin 3.9 g/dL (2.2-4.2); Glucose 91 mg/dL (74-106); Potassium 4.2 mmol/L (3.5-5.1); Protein, Total 6.3 g/dL (6.4-8.2); Sodium Level 140 mmol/L (136-145)
[2022-01-02] MEDS: 0.9% Normal Saline 1,000 ML 125 ML IV (09:07)
--- NOTE | 2022-01-02 12:11 | DCINST_ITS ---
Discharge Instructions Diet Discharge Diet: No restrictions Activity Discharge Activity: Return to Normal Activity Follow Up Care Test Results: Test results from this visit will be discussed in further detail at your follow- up appointment, if applicable. Discharge Plan Admission Admit Date/Time: 12/29/21 19:17 Primary Reason for Your Visit: Acute bilateral leg cellulitis Attending Provider: Hallie Reid Primary Care Provider: Kesha Duncan NP Consulting Providers: Alva Guo Instructions Additional Instructions / Restrictions: Complete your antibiotics Follow-up with your primary care doctor within 1 week Discharge Orders/Prescriptions Prescriptions: New cephalexin 500 mg capsule 500 mg PO Q6H 7 Days Qty: 28 0RF Referrals / Follow Up: Godwin Hensley MD [Non-Staff] - Kesha Duncan NP, [employer]ARY MACHINE OPERATOR-C [Primary Care Provider] - Disposition Disposition (needs filled in before D/C Order can be placed): Home, Self Care
--- NOTE | 2022-01-02 12:17 | DS.PCM_ITS ---
Providers Date of Admission: 12/29/21 Date of Discharge: 01/02/22 Primary Care Physician: LUZ Carlisle Reason For Visit: LLE CELLULITIS, POSSIBLE ABCESS Diagnosis Discharge Diagnosis (1) Cellulitis: Status: Acute Code(s): L03.90 - Cellulitis, unspecified Plan 1. Acute bilateral lower extremity/posterior knee/calf cellulitis status post recent IV drug injection in the area 2. Hyponatremia/hypokalemia 3. Hypomagnesemia, resolved 4. Polysubstance use 5. Nicotine dependence Medications at Discharge Home Medications cephalexin 500 mg capsule 500 mg PO Q6H 7 days #28 caps 01/02/22 Hospital Course Operations None Procedures None Summary of Care Provided Minutes Spent on Discharge: 35 Hospital Course: 26-year-old female with past medical history of anxiety/depression, polysubstance use with recent IV drug use with injection of the left lower leg behind the knee, comes in with progressive fatigue, left lower extremity redness and edema. Patient was recently seen at [facility] but she was not truthful about her drug use or recent injection. She was worked at the time for pelvic infection and discharged home. In the emergency room, patient had evidence of acute cellulitis. Her white cell count was 18. She had evidence of hypokalemia potassium 3.4. Urine tox was positive for methamphetamines. She was admitted to the progressive care unit and started on IV Zosyn and vancomycin. Patient had evidence of red man syndrome. Vancomycin was discontinued. Electrolytes was replaced. She continued to improve. IV Zosyn was switched to cefazolin. Patient was also monitored for withdrawal. She generally continue to improve and was discharged home with 1 more week of Keflex making a total of 10 days of antibiotics. She was strongly advised to quit use of illicit drugs. Physical Exam Narrative Physical exam: General: Alert, Oriented x3, Cooperative, obese HEENT: Atraumatic Oral: Moist Mucosa Neck: Supple Lungs: Clear to auscultation Cardiovascular: HS I+II, regular, no murmurs Abdomen: Bowel Sounds Present, Soft, Non Tender Extremities: Bilateral posterior knee and right anterior jiang erythema appears to be much improved Skin: No rashes, No breakdown Neurological: Grossly intact Psych/Mental Status: Appropriate Weight / BMI Weight Weight: 103.6 kg Body Mass Index (BMI) 35.7 ABG / Lab / Microbiology Data Result Diagrams: 01/02/22 05:38 01/02/22 05:38 Laboratory: Laboratory Results - last 24 hr 01/02/22 05:38: WBC 8.1, RBC 3.24 L, Hgb 8.5 L, Hct 26.0 L, MCV 80.2 L, MCH 26.2 L, MCHC 32.7 D, RDW Std Deviation 44.2 H, RDW Coeff of Mikki 15.2 H, Plt Count 205, MPV 11.2, Immature Gran % (Auto) 0.200, Neut % (Auto) 51.0, Lymph % (Auto) 37.7, Banks % (Auto) 8.6, Eos % (Auto) 2.0, Baso % (Auto) 0.5, Absolute Neuts (auto) 4.1, Absolute Lymphs (auto) 3.04, Nucleated RBC % 0 01/02/22 05:38: Sodium 140, Potassium 4.2, Chloride 108 H, Carbon Dioxide 25.0, Anion Gap 7, BUN 16, Creatinine 1.73 H, Estim Creat Clear Calc 48.34, Est GFR (MDRD) Af Amer 46 L, Est GFR (MDRD) Non-Af 38 L, BUN/Creatinine Ratio 9.2 L, Glucose 91, Calcium 8.2 L, Total Bilirubin 0.20, AST 16, ALT 18, Alkaline Phosphatase 41 L, Total Protein 6.3 L, Albumin 2.4 L, Globulin 3.9, Albumin/Globulin Ratio 0.6 L Microbiology: Microbiology 12/29/21 18:00 Blood Culture (Wb) - Anticubital Left Blood Culture - Preliminary No growth in 48 hours. 12/29/21 17:45 Blood Culture (Wb) - Anticubital Right Blood Culture - Preliminary No growth in 48 hours. 12/29/21 18:07 Urine, Clean Catch Urine Culture - Final Mixed Gram Positive Organisms D/C Instructions Discharge Diet: No restrictions Meaningful Use Info Meaningful Use Diagnoses (Choose all that apply): None applicable Discharge Plan Admission Admit Date/Time: 12/29/21 19:17 Primary Reason for Your Visit: Acute bilateral leg cellulitis Attending Provider: Hallie Reid Primary Care Provider: Kesha Duncan NP Consulting Providers: Alva Guo Instructions Additional Instructions / Restrictions: Complete your antibiotics Follow-up with your primary care doctor within 1 week Discharge Orders/Prescriptions Prescriptions: New cephalexin 500 mg capsule 500 mg PO Q6H 7 Days Qty: 28 0RF Referrals / Follow Up: Godwin Hensley MD [Non-Staff] - Kesha Duncan NP, NUR[employer]IATION COUNSELOR-C [Primary Care Provider] - Disposition Disposition (needs filled in before D/C Order can be placed): Home, Self Care Charges/Coding Visit Charges Inpatient E&M: 20825 Disch Hosp
== END 2022-01-02 14:24 | disposition home or self-care (01) | DRG 603 ==
LOC: ED 19:34 → PCU 19:54
PROVIDERS: Admitting Provider Family Medicine; Emergency Provider Emergency Medicine; PCP Nurse Practitioner Family; Visit Provider Internal Medicine
DX: L03.116 Cellulitis of left lower limb (principal); E87.1 Hypo-osmolality and hyponatremia; F15.10 Other stimulant abuse, uncomplicated; D50.9 Iron deficiency anemia, unspecified; E87.6 Hypokalemia; E66.9 Obesity, unspecified; F17.290 Nicotine dependence, other tobacco product, uncomplicated; F41.9 Anxiety disorder, unspecified; F17.210 Nicotine dependence, cigarettes, uncomplicated; L03.115 Cellulitis of right lower limb; T36.8X5A Adverse effect of other systemic antibiotics, initial encounter; F32.A Depression, unspecified; R73.9 Hyperglycemia, unspecified; R50.9 Fever, unspecified; Z68.35 Body mass index [BMI] 35.0-35.9, adult; R22.0 Localized swelling, mass and lump, head; Y92.239 Unspecified place in hospital as the place of occurrence of the external cause
CPT/HCPCS: 36415; 71045; 73700; 80053; 80307; 81001; 82728; 83036; 83540; 83550; 83605; 83735; 85025; 85610; 85652; 85730; 86140; 86703; 86706; 86803; 87040; 87086; 87088; 87340; 87640; 87641; 93005; 97802; 99285; 99406; J7030; J7040; J7050; A4216; J3490

== ENCOUNTER 2023-11-09 18:08 | Emergency (ER) | payer SELFPAY ==
[2023-11-09] VITALS (7 sets, daily range): BP systolic 138–147; BP diastolic 77–100; PULSE 75–89; RESP 15–19; TEMP 36.7–37.1; O2SAT 96–100; BMI 38.0
--- NOTE | 2023-11-09 21:34 | EDS_ITS ---
HPI History of Present Illness Chief Complaint: [facility] Medical History Anxiety and depression Anemia Obesity IVDA (intravenous drug abuse) complicating Tobacco use Methamphetamine abuse Home Medications ?Medication ?Instructions ?Recorded ?Last Taken ?Type cephalexin 500 mg capsule 500 mg PO Q6H 7 days #28 caps 01/02/22 Unknown Rx nicotine (polacrilex) 4 mg gum 4 mg buccal Q2H 14 days #110 ea 01/02/22 Unknown Rx nicotine 21 mg/24 hr daily 1 patch transdermal DAILY 28 days 01/02/22 Unknown Rx transdermal patch #28 ea cefdinir 300 mg capsule 600 mg (2 x 300 mg) PO DAILY 10 11/09/23 Unknown Rx days #20 caps Allergy/AdvReac Type Severity Reaction Status Date / Time No Known Allergies Allergy Verified 11/09/23 18:09 Family History (Updated 12/30/21 @ 01:[address] Alva Guo MD) Mother Cancer Alcohol abuse Father Alcohol abuse Surgical History H/O arthroscopic knee surgery Social History (Updated 12/30/21 @ 01:[address] Alva Guo MD) household members: significant other Smoking Status: Former smoker how long ago did patient quit smoking: Quit cig tob x 2 yrs (1.5 ppd since teen)->jewel pot daily. alcohol intake: current alcohol intake frequency: holidays/special occasions only substance use type: amphetamines and IV drugs EXAM Physical Exam Const Vital Signs: 11/09/23 18:09 11/09/23 18:13 11/09/23 19:13 Temperature 98.1 F 98.1 F 98.5 F Temperature Source Temporal Oral Oral Pulse Rate 85 85 89 Respiratory Rate 18 18 16 Blood Pressure 147/96 H 147/96 H 147/100 H Blood Pressure Mean 113 113 115 Pulse Ox 98 98 100 Oxygen Delivery Method Room Air Room Air 11/09/23 20:00 11/09/23 21:00 Temperature 98.6 F 98.8 F Temperature Source Temporal Oral Pulse Rate 79 75 Respiratory Rate 16 16 Blood Pressure 145/91 H 138/77 H Blood Pressure Mean 109 97 Pulse Ox 99 96 Oxygen Delivery Method Room Air MDM MDM MDM Narrative Medical decision making narrative: HISTORY OF PRESENT ILLNESS: 28-year-old female presents with concern for dental pain and swelling. REVIEW OF SYSTEMS: Pertinent positives:dental pain, facial swelling Pertinent negatives: Drooling, neck stiffness, chest pain. PHYSICAL EXAM: Nursing triage notes reviewed, Vital signs reviewed Constitutional: please see mdm HENT: MMM, no evidence of dental abscess, poor dentition, obvious infected left lower molar, no submandibular edema or induration, no tonsillar exudates or erythema, uvula midline, patient was controlling secretions, no drooling, no trimus, no dysphonia Eyes: Pupils equal round and reactive to light, Extraocular muscles intact Neck: No stridor, no JVD, full neck ROM Lungs: Clear to auscultation, No wheezing or rales. No increased work of breathing, no conversational dyspnea, no accessory muscle use, no nasal flaring. No respiratory distress noted Heart: Regular rate and rhythm, No murmurs, No rubs and No gallops, 2+ distal pulses (radial, femoral, posterior tibial) in all extremities MEDICAL DECISION MAKING: Chief Complaint: Dental pain External records reviewed: No recent ED visits Factors affecting care: None reported Social determinants of health: History of IV drug use MDM Narrative: The patient was hemodynamically stable, afebrile, nontoxic-appearing. Exam with swelling in the left lower mandible but no submandibular edema or brawny induration. No infra lingular swelling or induration. No appreciable fluid collection or abscess to drain. Will broaden antibiotics to cefdinir once daily and have her follow-up with already scheduled dentist appointment. I considered the following differential diagnosis: Dental abscess, ANUG, Ludewig's angina, RPA, W[employer]HOUSE UN[employer]ER, dental caries, gingivitis Shared decision making: I will have a discussion with the patient and or visitors regarding risk/benefits of further testing or admission. They will be made aware of of the risk/benefits inherent in this decision they will be given the opportunity to voice understanding. Impression: 1. Dental infection 2. Dental caries Disposition: Discharge home This note was generated with [employer] dictation software. It may contain incorrect words, spelling, and punctuation that were not noted in review of the chart prior to signing. Discharge Plan Triage Chief Complaint: Dental ED Provider: Missael Gastelum Dx/Rx/DC Orders Instructions: ED Dental Pain Prescriptions: New cefdinir 300 mg capsule 600 mg PO DAILY 10 Days Qty: 20 0RF No Action cephalexin 500 mg capsule 500 mg PO Q6H 7 Days Qty: 28 0RF nicotine 21 mg/24 hr patch 24 hour 1 patch transdermal DAILY 28 Days Qty: 28 0RF nicotine (polacrilex) 4 mg gum 4 mg buccal Q2H 14 Days Qty: 110 0RF Primary Care Provider: Care Physician,No Primary Referrals: Mele Landry MD [Med Staff - Active Staff] - Activity Restrictions/Additional Instructions: Thank you for trusting us with your care today! Please take Tylenol (2 pills, 650 mg), ibuprofen (2 pills, 400 mg) every 6 hours as needed for pain and fever control. Please return to the emergency department if your symptoms change or worsen. Specifically develop difficulty swallowing, difficulty opening her mouth, neck stiffness, chest tightness or neck tightness, drooling, or inability to swallow. Please follow with your primary care physician for further outpatient evaluation and management. Print Language: Mongolian Disposition Disposition: Home, Self Care
[2023-11-09] MEDS: oxyCODONE 5 MG Tablet PO (22:04)
[2023-11-09] MEDS: Ibuprofen 200 MG Tablet 400 MG PO (22:04)
[2023-11-09] MEDS: Cefdinir 300 MG Capsule 600 MG PO (22:37)
== END 2023-11-09 22:38 | disposition home or self-care (01) ==
PROVIDERS: Emergency Provider Emergency Medicine; Visit Provider Emergency Medicine
DX: K04.7 Periapical abscess without sinus (principal); K02.9 Dental caries, unspecified; Z87.891 Personal history of nicotine dependence
CPT/HCPCS: 99283